=== PATIENT | male | born 1960 | race Caucasian/White ===

== ENCOUNTER → 2017-08-12 | Outpatient (CLI) | payer BC ==
[2017-08-12 12:10] LABS: HCT 44.7 % (39.0-53.0); HGB 14.7 gm/dL (13.0-17.5); MCH 30.4 pg (25.0-35.0); MCHC 32.9 g/dL (31.0-37.0); MCV 92.6 fL (80.0-100.0); Mean Platelet Volume 7.2; Platelet Count 240 k/uL (150-450); RBC 4.83 m/uL (4.30-5.90); RDW 12.1 % (11.5-15.5); WBC 6.9 k/uL (3.8-10.6)
--- NOTE | 2017-08-12 12:12 | XR ---
EXAMINATION TYPE: XR chest 2V DATE OF EXAM: 08/12/2017 COMPARISON: NONE HISTORY: Presurgical study. TECHNIQUE: Frontal and lateral views of the chest are obtained. FINDINGS: There is no focal air space opacity, pleural effusion, or pneumothorax seen. The cardiac silhouette size is within normal limits. The osseous structures are intact. IMPRESSION: No acute cardiopulmonary process.
[2017-08-12 12:23] LABS: ALT 29 U/L (21-72); AST 25 U/L (17-59); Albumin 4.4 g/dL (3.5-5.0); Alkaline Phosphatase 57 U/L (38-126); Anion Gap 9 mmol/L; Blood Urea Nitrogen 15 mg/dL (9-20); Calcium 10.1 mg/dL (8.4-10.2); Carbon Dioxide 30 mmol/L (22-30); Chloride 103 mmol/L (98-107); Glucose 106 mg/dL (74-99); Potassium 5.4 mmol/L (3.5-5.1); Sodium 142 mmol/L (137-145); Total Bilirubin 1.4 mg/dL (0.2-1.3); Total Protein 7.1 g/dL (6.3-8.2)
[2017-08-12 12:26] LABS: INR 1.1 (<1.2); Partial Thromboplastin Time 22.6 sec (22.0-30.0); Prothrombin Time 10.4 sec (9.0-12.0)
[2017-08-12 14:48] LABS: Appearance,Urine Clear (Clear); Bilirubin,Urine Negative (Negative); Blood,Urine Negative (Negative); Color,Urine Colorless; Glucose,Urine (UA) Negative (Negative); Ketones,Urine Negative (Negative); Leukocyte Esterase,Urine Negative (Negative); Nitrite,Urine Negative (Negative); Protein,Urine Negative (Negative); Specific Gravity,Urine 1.002 (1.001-1.035); Urobilinogen,Urine <2.0 mg/dL (<2.0)
== END | disposition home or self-care (01) ==
LOC: LABWHC1 11:00
PROVIDERS: ATTEND Orthopaedic Surgery Orthopaedic Surgery of the Spine
DX: Z01.818 Encounter for other preprocedural examination (principal); M51.27 Other intervertebral disc displacement, lumbosacral region
CPT/HCPCS: 36415; 71046; 80053; 81003; 85027; 85610; 85730; 93005

== ENCOUNTER 2018-03-04 18:00 | Inpatient (IN) | payer BC ==
[2018-03-04] MEDS ORDERED: SODIUM CHLORIDE 0.9% 500 ML IV STA (19:28)
[2018-03-04] MEDS ORDERED: MORPHINE SULFATE 2 MG/ML SYRINGE IVP STA (19:28)
--- NOTE | 2018-03-04 19:33 | ED ---
General Adult HPI - General Chief complaint: Abdominal Pain Stated complaint: abdominal pain Time Seen by Provider: 03/04/18 19:14 Source: patient, RN notes reviewed, old records reviewed Mode of arrival: ambulatory Limitations: no limitations - History of Present Illness Initial comments: 57-year-old male presenting for evaluation of abdominal pain. Pain has been present for the past 48 hours. Initially began as periumbilical, is traveled to the right lower quadrant. Pain is dull and achy in nature. Patient does report some diarrhea which occurred approximately 24 hours ago. No nausea vomiting. He had a temperature of 101 at home. Patient has no significant medical history. - Related Data Home Medications Medication Instructions Recorded Confirmed Pantoprazole [Protonix] 40 mg PO DAILY 03/04/18 03/04/18 Allergies Allergy/AdvReac Type Severity Reaction Status Date / Time No Known Allergies Allergy Verified 03/04/18 19:23 Review of Systems ROS Statement: Those systems with pertinent positive or pertinent negative responses have been documented in the HPI. ROS Other: All systems not noted in ROS Statement are negative. Past Medical History Past Medical History: GERD/Reflux History of Any Multi-Drug Resistant Organisms: None Reported Past Surgical History: Orthopedic Surgery Past Psychological History: No Psychological Hx Reported Smoking Status: Never smoker Past Alcohol Use History: Occasional Past Drug Use History: None Reported General Exam Limitations: no limitations General appearance: alert, in no apparent distress Head exam: Present: atraumatic, normocephalic Eye exam: Present: normal appearance, PERRL ENT exam: Present: normal exam Neck exam: Present: normal inspection. Absent: tenderness, meningismus Respiratory exam: Present: normal lung sounds bilaterally. Absent: respiratory distress, wheezes, rales Cardiovascular Exam: Present: regular rate, normal rhythm GI/Abdominal exam: Present: soft, tenderness (Right lower quadrant tenderness to palpation), hypoactive bowel sounds. Absent: distended, guarding, rebound Extremities exam: Present: normal inspection, normal capillary refill. Absent: pedal edema Neurological exam: Present: alert, oriented X3, CN II-XII intact. Absent: motor sensory deficit Psychiatric exam: Present: normal affect, normal mood Skin exam: Present: warm, dry, intact. Absent: cyanosis, diaphoretic Course Vital Signs 03/04/18 03/04/18 18:07 20:28 Temperature 99.6 F Pulse Rate 100 82 Respiratory 18 18 Rate Blood Pressure 131/84 125/73 O2 Sat by Pulse 98 97 Oximetry Medical Decision Making - Medical Decision Making 57-year-old male with no chronic medical problems presenting with 2 days of abdominal pain progressing to right lower quadrant pain. Patient did have reported history of fever. He is tender in the right lower quadrant. Laboratory studies and CT obtained. Patient is elevated white blood cell count at 17.9. CT confirms acute appendicitis with distended appendix at 2 cm. Case is discussed with Dr. Julien, recommends IV antibiotics, nothing by mouth, will see the patient in the morning. - Lab Data Result diagrams: 03/04/18 19:50 03/04/18 19:50 Lab Results 03/04/18 03/04/18 03/04/18 Range/Units 19:50 19:50 19:50 WBC 17.9 H (3.8-10.6) k/uL RBC 5.19 (4.30-5.90) m/uL Hgb 15.7 (13.0-17.5) gm/dL Hct 46.7 (39.0-53.0) % MCV 90.0 (80.0-100.0) fL MCH 30.1 (25.0-35.0) pg MCHC 33.5 (31.0-37.0) g/dL RDW 12.3 (11.5-15.5) % Plt Count 205 (150-450) k/uL Neutrophils % 91 % Lymphocytes % 3 % Monocytes % 4 % Eosinophils % 1 % Basophils % 0 % Neutrophils # 16.3 H (1.3-7.7) k/uL Lymphocytes # 0.5 L (1.0-4.8) k/uL Monocytes # 0.7 (0-1.0) k/uL Eosinophils # 0.2 (0-0.7) k/uL Basophils # 0.0 (0-0.2) k/uL APTT (22.0-30.0) sec Sodium 136 L (137-145) mmol/L Potassium 4.4 (3.5-5.1) mmol/L Chloride 102 (98-107) mmol/L Carbon Dioxide 24 (22-30) mmol/L Anion Gap 10 mmol/L BUN 11 (9-20) mg/dL Creatinine 0.78 (0.66-1.25) mg/dL Est GFR (CKD-EPI)AfAm >90 (>60 ml/min/1.73 sqM) Est GFR (CKD-EPI)NonAf >90 (>60 ml/min/1.73 sqM) Glucose 124 H (74-99) mg/dL Plasma Lactic Acid Kobe 1.3 (0.7-2.0) mmol/L Calcium 9.5 (8.4-10.2) mg/dL Total Bilirubin 3.4 H (0.2-1.3) mg/dL AST 27 (17-59) U/L ALT 29 (21-72) U/L Alkaline Phosphatase 67 (38-126) U/L Total Protein 7.3 (6.3-8.2) g/dL Albumin 4.3 (3.5-5.0) g/dL Lipase 90 (23-300) U/L Urine Color Urine Appearance (Clear) Urine pH (5.0-8.0) Ur Specific [place] (1.001-1.035) Urine Protein (Negative) Urine Glucose (UA) (Negative) Urine Ketones (Negative) Urine Blood (Negative) Urine Nitrite (Negative) Urine Bilirubin (Negative) Urine Urobilinogen (<2.0) mg/dL Ur Leukocyte Esterase (Negative) 03/04/18 03/04/18 Range/Units 19:50 19:59 WBC (3.8-10.6) k/uL RBC (4.30-5.90) m/uL Hgb (13.0-17.5) gm/dL Hct (39.0-53.0) % MCV (80.0-100.0) fL MCH (25.0-35.0) pg MCHC (31.0-37.0) g/dL RDW (11.5-15.5) % Plt Count (150-450) k/uL Neutrophils % % Lymphocytes % % Monocytes % % Eosinophils % % Basophils % % Neutrophils # (1.3-7.7) k/uL Lymphocytes # (1.0-4.8) k/uL Monocytes # (0-1.0) k/uL Eosinophils # (0-0.7) k/uL Basophils # (0-0.2) k/uL APTT 25.6 (22.0-30.0) sec Sodium (137-145) mmol/L Potassium (3.5-5.1) mmol/L Chloride (98-107) mmol/L Carbon Dioxide (22-30) mmol/L Anion Gap mmol/L BUN (9-20) mg/dL Creatinine (0.66-1.25) mg/dL Est GFR (CKD-EPI)AfAm (>60 ml/min/1.73 sqM) Est GFR (CKD-EPI)NonAf (>60 ml/min/1.73 sqM) Glucose (74-99) mg/dL Plasma Lactic Acid [place] (0.7-2.0) mmol/L Calcium (8.4-10.2) mg/dL Total Bilirubin (0.2-1.3) mg/dL AST (17-59) U/L ALT (21-72) U/L Alkaline Phosphatase (38-126) U/L Total Protein (6.3-8.2) g/dL Albumin (3.5-5.0) g/dL Lipase (23-300) U/L Urine Color Light Yellow Urine Appearance Clear (Clear) Urine pH 6.0 (5.0-8.0) Ur Specific [place] 1.004 (1.001-1.035) Urine Protein Negative (Negative) Urine Glucose (UA) Negative (Negative) Urine Ketones Negative (Negative) Urine Blood Negative (Negative) Urine Nitrite Negative (Negative) Urine Bilirubin Negative (Negative) Urine Urobilinogen <2.0 (<2.0) mg/dL Ur Leukocyte Esterase Negative (Negative) Disposition Clinical Impression: Acute appendicitis Disposition: ADMITTED IP TO THIS [facility] Condition: Stable Is patient prescribed a controlled substance at d/c from ED?: No Referrals: Georgette Salguero III, MD [Primary Care Provider] - 1-2 days Decision to Admit Reason: Admit from EC Decision Date: 03/04/18 Decision Time: 20:51
[2018-03-04 20:20] LABS: Basophils % (A) 0 %; Eosinophils # (A) 0.2 k/uL (0-0.7); Eosinophils % (A) 1 %; HCT 46.7 % (39.0-53.0); HGB 15.7 gm/dL (13.0-17.5); Lymphocytes # (A) 0.5 k/uL (1.0-4.8); Lymphocytes % (A) 3 %; MCH 30.1 pg (25.0-35.0); MCHC 33.5 g/dL (31.0-37.0); Mean Platelet Volume 7.1; Monocytes # (A) 0.7 k/uL (0-1.0); Monocytes % (A) 4 %; Neutrophils # (A) 16.3 k/uL (1.3-7.7); Neutrophils % (A) 91 %; Platelet Count 205 k/uL (150-450); RBC 5.19 m/uL (4.30-5.90); RDW 12.3 % (11.5-15.5); WBC 17.9 k/uL (3.8-10.6)
[2018-03-04 20:27] LABS: Appearance,Urine Clear (Clear); Bilirubin,Urine Negative (Negative); Blood,Urine Negative (Negative); Color,Urine Light Yellow; Glucose,Urine (UA) Negative (Negative); Ketones,Urine Negative (Negative); Leukocyte Esterase,Urine Negative (Negative); Nitrite,Urine Negative (Negative); Protein,Urine Negative (Negative); Specific Gravity,Urine 1.004 (1.001-1.035); Urobilinogen,Urine <2.0 mg/dL (<2.0)
--- NOTE | 2018-03-04 20:41 | CT ---
EXAMINATION TYPE: CT abdomen pelvis w con DATE OF EXAM: 03/04/2018 COMPARISON: HISTORY: RLQ pain CT DLP: 901.1 mGycm Automated exposure control for dose reduction was used. TECHNIQUE: Helical acquisition of images was performed from the lung bases through the pelvis. CONTRAST: Performed without Oral Contrast and with IV Contrast, patient injected with 100 mL of Isovue 300. FINDINGS: LUNG BASES: No significant abnormality is appreciated. LIVER/GB: No significant abnormality is appreciated. PANCREAS: No significant abnormality is seen. SPLEEN: No significant abnormality is seen. ADRENALS: No significant abnormality is seen. KIDNEYS: No significant abnormality is seen. PERITONEAL CAVITY: No free air is visualized. No peritoneal fluid. ABDOMINAL ADENOPATHY: None visualized REPRODUCTIVE ORGANS: No significant abnormality is seen URINARY BLADDER: No significant abnormality is seen. PELVIC ADENOPATHY: None visualized. OSSEOUS STRUCTURES: No significant abnormality is seen. BOWEL: The appendix is markedly distended and dilated, reaching caliber of 2 cm. The appendix course s from the cecum posteromedially to have its tip just anterior to the sacral promontory. Surrounding the appendix is a broad band of circumferential edematous reticulation with indistinct fascial thicke doe and with reactive mild right ureterectasis. The right ureter is immediately posterior to the mid appendix. There are no abnormal fluid or gas collections. No bowel obstruction. OTHER: The vasculature is unremarkable. IMPRESSION: ACUTE APPENDICITIS, WITH MARKED DISTENTION OF THE APPENDIX.
[2018-03-04 20:43] LABS: ALT 29 U/L (21-72); AST 27 U/L (17-59); Albumin 4.3 g/dL (3.5-5.0); Alkaline Phosphatase 67 U/L (38-126); Anion Gap 10 mmol/L; Blood Urea Nitrogen 11 mg/dL (9-20); Calcium 9.5 mg/dL (8.4-10.2); Carbon Dioxide 24 mmol/L (22-30); Chloride 102 mmol/L (98-107); Glucose 124 mg/dL (74-99); Lipase 90 U/L (23-300); Sodium 136 mmol/L (137-145); Total Bilirubin 3.4 mg/dL (0.2-1.3); Total Protein 7.3 g/dL (6.3-8.2)
[2018-03-04] MEDS ORDERED: KETOROLAC 30 MG/ML 1 ML VIAL IVP STA (20:46)
[2018-03-04] MEDS ORDERED: KETOROLAC 30 MG/ML 1 ML VIAL IVP PRN (20:47)
[2018-03-04] MEDS ORDERED: PIPERACILLIN-TAZOBACTAM 3.375 GM in DEXTROSE/WATER 1 50ML.BAG IVPB STA (20:47)
[2018-03-04] MEDS ORDERED: NALOXONE 0.4 MG/ML 1 ML VIAL IV PRN (20:47)
[2018-03-04 20:48] LABS: Potassium 4.4 mmol/L (3.5-5.1)
[2018-03-04] MEDS: SODIUM CHLORIDE 0.9% 1,000 ML IV SCH (20:57)
[2018-03-04 21:50] VITALS: BMI 28.5
[2018-03-04] MEDS: ACETAMINOPHEN TAB 325 MG TAB PO PRN (21:54)
[2018-03-04] MEDS: MORPHINE SULFATE 4 MG/ML SYRINGE IV PRN (21:55)
[2018-03-05] MEDS: MORPHINE SULFATE 4 MG/ML SYRINGE IV PRN ×2 (02:19→08:08)
[2018-03-05] MEDS: PIPERACILLIN-TAZOBACTAM 3.375 GM in DEXTROSE/WATER 1 50ML.BAG IVPB SCH ×3 (05:07→20:15)
--- NOTE | 2018-03-05 09:22 | P.GSHP ---
<Glenny Squires - Last Filed: 03/05/18 09:07> History of Present Illness H&P Date: 03/05/18 57-year-old male presented to the emergency room on the day of admission with a chief complaint of developing periumbilical pain radiating to the right lower quadrant started 48 hours prior became more symptomatic patient stated that he developed fever chills with a nausea sensation at home. states he had some loose stools with the episode. He described the pain as a dull and achy in nature in the right upper quadrant tender to the touch. No prior episodes. No significant past medical history except hiatal hernia. CAT scan of the abdomen and pelvis with contrast reviewing the report indicates acute appendicitis with marked distention of the appendix. No bowel obstruction. In the emergency room the temp was 101 white count 17 total bili 3.4. Past surgical history orthopedic surgery July 2017 back surgery, knee surgery greater than 10 years Currently continues to report having right upper quadrant tenderness with a nausea sensation. - Review of Systems Comment: Essentially unremarkable except as mentioned in the present illness Past Medical History Past Medical History: GERD/Reflux History of Any Multi-Drug Resistant Organisms: None Reported Past Surgical History: Orthopedic Surgery Past Anesthesia/Blood Transfusion Reactions: No Reported Reaction Past Psychological History: No Psychological Hx Reported Smoking Status: Never smoker Past Alcohol Use History: Occasional Past Drug Use History: None Reported - Past Family History Mother History Unknown: Yes Family Medical History: Coronary Artery Disease (CAD) Father Family Medical History: Coronary Artery Disease (CAD), Diabetes Mellitus Medications and Allergies Home Medications Medication Instructions Recorded Confirmed Type Pantoprazole [Protonix] 40 mg PO DAILY 03/04/18 03/04/18 History Allergies Allergy/AdvReac Type Severity Reaction Status Date / Time No Known Allergies Allergy Verified 03/04/18 19:23 Surgical - Exam Vital Signs Temp Pulse Resp BP Pulse Ox 99.6 F 100 18 131/84 98 03/04/18 18:07 03/04/18 18:07 03/04/18 18:07 03/04/18 18:07 03/04/18 18:07 GENERAL APPEARANCE: 57-year-old male resting in bed awake alert oriented 3 reports having right upper quadrant abdominal discomfort with a nausea sensation VITAL SIGNS: Reviewed HEENT: Head is normocephalic and atraumatic. Pupils are equal and reactive. The nares are patent. Oropharynx is clear without lesions. NECK: Supple without lymphadenopathy. Traches midline. HEART: S1, S2. Regular rate and rhythm. No murmur denying chest pain LUNGS: No crackles or wheezes are heard. Adequate air movement bilaterally on room air sats 95% ABDOMEN: Soft, positive tenderness right upper quadrant nondistended with good bowel sounds. No peritoneal signs. No palpable organomegaly or masses. EXTREMITIES: Normal skin color and turgor. No cyanosis, rash, ulceration, clubbing or edema. Radial pedal pulses are 2/4 bilaterally. NEUROLOGICAL: No focal deficits. Strength and sensation are grossly intact. Results - Labs 03/04/18 19:50 03/04/18 19:50 Abnormal Lab Results - Last 24 Hours (Table) 03/04/18 03/04/18 Range/Units 19:50 19:50 WBC 17.9 H (3.8-10.6) k/uL Neutrophils # 16.3 H (1.3-7.7) k/uL Lymphocytes # 0.5 L (1.0-4.8) k/uL Sodium 136 L (137-145) mmol/L Glucose 124 H (74-99) mg/dL Total Bilirubin 3.4 H (0.2-1.3) mg/dL Diabetes panel 03/04/18 Range/Units 19:50 Sodium 136 L (137-145) mmol/L Potassium 4.4 (3.5-5.1) mmol/L Chloride 102 (98-107) mmol/L Carbon Dioxide 24 (22-30) mmol/L BUN 11 (9-20) mg/dL Creatinine 0.78 (0.66-1.25) mg/dL Glucose 124 H (74-99) mg/dL Calcium 9.5 (8.4-10.2) mg/dL AST 27 (17-59) U/L ALT 29 (21-72) U/L Alkaline Phosphatase 67 (38-126) U/L Total Protein 7.3 (6.3-8.2) g/dL Albumin 4.3 (3.5-5.0) g/dL Calcium panel 03/04/18 Range/Units 19:50 Calcium 9.5 (8.4-10.2) mg/dL Albumin 4.3 (3.5-5.0) g/dL Pituitary panel 03/04/18 Range/Units 19:50 Sodium 136 L (137-145) mmol/L Potassium 4.4 (3.5-5.1) mmol/L Chloride 102 (98-107) mmol/L Carbon Dioxide 24 (22-30) mmol/L BUN 11 (9-20) mg/dL Creatinine 0.78 (0.66-1.25) mg/dL Glucose 124 H (74-99) mg/dL Calcium 9.5 (8.4-10.2) mg/dL Adrenal panel 03/04/18 Range/Units 19:50 Sodium 136 L (137-145) mmol/L Potassium 4.4 (3.5-5.1) mmol/L Chloride 102 (98-107) mmol/L Carbon Dioxide 24 (22-30) mmol/L BUN 11 (9-20) mg/dL Creatinine 0.78 (0.66-1.25) mg/dL Glucose 124 H (74-99) mg/dL Calcium 9.5 (8.4-10.2) mg/dL Total Bilirubin 3.4 H (0.2-1.3) mg/dL AST 27 (17-59) U/L ALT 29 (21-72) U/L Alkaline Phosphatase 67 (38-126) U/L Total Protein 7.3 (6.3-8.2) g/dL Albumin 4.3 (3.5-5.0) g/dL Assessment and Plan Assessment: Impression Present on admission right upper quadrant abdominal pain with nausea vomiting suspect due to acute appendicitis Computed tomography scan abdomen and pelvis with contrast report indicate acute appendicitis with marked distention of the appendix no bowel obstruction History of a hiatal hernia History of esophageal reflux Present on admission febrile leukocytosis suspect due to acute appendicitis Plan Keep nothing by mouth Scheduled today for a lap appendectomy IV fluid as ordered IV Zosyn as ordered DVT and GI prophylaxis pain control The above impression and plan of care have been discussed and directed by signing physician. Glenny Squires nurse practitioner acting as scribe for signing physician. <Zak Julien - Last Filed: 03/05/18 10:08> Surgical - Exam Vital Signs Temp Pulse Resp BP Pulse Ox 99.6 F 100 18 131/84 98 03/04/18 18:07 03/04/18 18:07 03/04/18 18:07 03/04/18 18:07 03/04/18 18:07 Results - Labs 03/04/18 19:50 03/04/18 19:50 Abnormal Lab Results - Last 24 Hours (Table) 03/04/18 03/04/18 Range/Units 19:50 19:50 WBC 17.9 H (3.8-10.6) k/uL Neutrophils # 16.3 H (1.3-7.7) k/uL Lymphocytes # 0.5 L (1.0-4.8) k/uL Sodium 136 L (137-145) mmol/L Glucose 124 H (74-99) mg/dL Total Bilirubin 3.4 H (0.2-1.3) mg/dL Diabetes panel 03/04/18 Range/Units 19:50 Sodium 136 L (137-145) mmol/L Potassium 4.4 (3.5-5.1) mmol/L Chloride 102 (98-107) mmol/L Carbon Dioxide 24 (22-30) mmol/L BUN 11 (9-20) mg/dL Creatinine 0.78 (0.66-1.25) mg/dL Glucose 124 H (74-99) mg/dL Calcium 9.5 (8.4-10.2) mg/dL AST 27 (17-59) U/L ALT 29 (21-72) U/L Alkaline Phosphatase 67 (38-126) U/L Total Protein 7.3 (6.3-8.2) g/dL Albumin 4.3 (3.5-5.0) g/dL Calcium panel 03/04/18 Range/Units 19:50 Calcium 9.5 (8.4-10.2) mg/dL Albumin 4.3 (3.5-5.0) g/dL Pituitary panel 03/04/18 Range/Units 19:50 Sodium 136 L (137-145) mmol/L Potassium 4.4 (3.5-5.1) mmol/L Chloride 102 (98-107) mmol/L Carbon Dioxide 24 (22-30) mmol/L BUN 11 (9-20) mg/dL Creatinine 0.78 (0.66-1.25) mg/dL Glucose 124 H (74-99) mg/dL Calcium 9.5 (8.4-10.2) mg/dL Adrenal panel 03/04/18 Range/Units 19:50 Sodium 136 L (137-145) mmol/L Potassium 4.4 (3.5-5.1) mmol/L Chloride 102 (98-107) mmol/L Carbon Dioxide 24 (22-30) mmol/L BUN 11 (9-20) mg/dL Creatinine 0.78 (0.66-1.25) mg/dL Glucose 124 H (74-99) mg/dL Calcium 9.5 (8.4-10.2) mg/dL Total Bilirubin 3.4 H (0.2-1.3) mg/dL AST 27 (17-59) U/L ALT 29 (21-72) U/L Alkaline Phosphatase 67 (38-126) U/L Total Protein 7.3 (6.3-8.2) g/dL Albumin 4.3 (3.5-5.0) g/dL Assessment and Plan Plan: Acute appendicitis. Patient will undergo laparoscopic appendectomy today.
[2018-03-05] MEDS ORDERED: HEPARIN SODIUM,PORCINE 5,000 UNIT/ML 1 ML VIAL SQ ONE (10:07)
[2018-03-05] MEDS ORDERED: IV FLUID CONTINUATION 1,000 ML IV ONE (10:07)
[2018-03-05] MEDS: LACTATED RINGERS 1,000 ML IV ONE ×2 (10:10→15:08)
--- NOTE | 2018-03-05 10:11 | P.PN ---
Progress Note - Text Progress Note Date: 03/05/18 Patient's complaints of pain in the right lower quadrant. He rates his pain a 5 out of 10. On exam is lesser stable. His abdomen soft there is marked tenderness in the right lower quadrant. Acute appendicitis. Patient will undergo laparoscopic appendectomy. I discussed patient risks of possible open appendectomy.
[2018-03-05] MEDS ORDERED: BUPIVACAIN-EPI 0.25%-1:200,000 30 ML VIAL SQ ONE ×2 (10:37→11:03)
[2018-03-05] MEDS ORDERED: PROPOFOL 10 MG/ML 20 ML VIAL IV ONE (10:41)
[2018-03-05] MEDS ORDERED: MIDAZOLAM 2 MG/2 ML VIAL ONE (10:41)
[2018-03-05] MEDS ORDERED: NEOSTIGMINE 1 MG/ML 10 ML VIAL ONE (10:41)
[2018-03-05] MEDS ORDERED: LACTATED RINGERS 1,000 ML IV ONE ×2 (10:41→11:36)
[2018-03-05] MEDS ORDERED: ONDANSETRON 4 MG/2 ML VIAL ONE (10:41)
[2018-03-05] MEDS ORDERED: MAGNESIUM SULFATE 4 MEQ/ML 2 ML VIAL ONE (10:41)
[2018-03-05] MEDS ORDERED: PHENYLEPHRINE-0.9% NACL SYG 1 MG/10 ML SYRINGE ONE (10:41)
[2018-03-05] MEDS ORDERED: fentaNYL (PF) 50 MCG/ML 2 ML AMP ONE (10:41)
[2018-03-05] MEDS ORDERED: LIDOCAINE 1% INJ 10MG/ML (20 ML MDV) ONE (10:41)
[2018-03-05] MEDS ORDERED: ROCURONIUM BROMIDE 10 MG/ML 10 ML VIAL IV ONE (10:41)
[2018-03-05] MEDS ORDERED: KETOROLAC 30 MG/ML 1 ML VIAL ONE (10:41)
[2018-03-05] MEDS ORDERED: GLYCOPYRROLATE 0.2 MG/ML 2 ML VIAL ONE (10:41)
[2018-03-05] MEDS ORDERED: NALOXONE 0.4 MG/ML 1 ML VIAL IV PRN (11:36)
[2018-03-05] MEDS ORDERED: HYDROmorphone 1 MG/ML 1 ML SYRINGE IVP PRN (11:36)
[2018-03-05] MEDS ORDERED: METOCLOPRAMIDE 5 MG/ML 2 ML VIAL IVP PRN (11:36)
[2018-03-05] MEDS: HYDROmorphone 1 MG/ML 1 ML SYRINGE IVP ONE ×2 (12:09→12:30)
[2018-03-05] MEDS: HYDROcodone/APAP 5-325MG 1 EACH TAB PO PRN ×2 (13:52→20:14)
--- NOTE | 2018-03-05 14:21 | P.OP ---
Date of Procedure: 03/05/18 Preoperative Diagnosis: Acute appendicitis Postoperative Diagnosis: Acute appendicitis with appendiceal perforation and peritonitis Procedure(s) Performed: Laparoscopic appendectomy Anesthesia: REMIGIO Surgeon: Zak Julien Pathology: other (Appendix) Condition: stable (Stable) Description of Procedure: The patient's placed on the operating table in the supine position. The patient received general anesthesia. The abdomen was prepped and draped in the usual sterile fashion. The skin was anesthetized 1% local Xylocaine at the trocar sites. Using an 11 blade the skin was incised at the umbilicus. The umbilicus was grasped with a Verplanck clamp and then a Veress needle was placed into the peritoneal cavity. Position of the Veress needle was confirmed with positive drop test. After adequate insufflation a 5 mm trocar was placed into the peritoneal cavity. The abdomen was further insufflated. And then the laparoscope was placed in the peritoneal cavity. Next a 5 mm trocar was placed in the midline suprapubic position. And then a 10 mm trocar was placed in the midline epigastric position. The patient was rotated with the right side up and in Trendelenburg. The appendix was visualized. The appendix was grossly inflamed. The appendix was then bluntly dissected off of the omentum. There appeared to be a area of necrosis in the midportion the appendix. There was a fecalith seen. The appendix was grasped and then using the Harmonic scissors the mesoappendix was divided. A PDS Endoloop was then placed around the base of the appendix. And then the appendix was divided using Harmonic scissors. The appendix was placed into an Endo Catch and brought out through the 10 mm trocar site. The abdomen was irrigated. With 2 L of saline. A MAGDIEL drain is placed along the cecal base and brought out through the lower 5 mm trocar site. There is no bleeding seen. The trochars withdrawn. The skin was closed interrupted 3-0 Monocryl suture. Dermabond dressing was applied. Patient was sent to recovery room in stable condition.
[2018-03-05] MEDS: HEPARIN SODIUM,PORCINE 5,000 UNIT/ML 1 ML VIAL SQ SCH (16:40)
[2018-03-05] MEDS: SODIUM CHLORIDE 0.9% 1,000 ML IV SCH (19:30)
--- NOTE | 2018-03-05 19:58 | CONS ---
CONSULTATION REASON FOR CONSULTATION: Advice regarding GERD and other medical issues, requested by Dr. Julien. HISTORY OF PRESENT ILLNESS: This 57-year-old gentleman with a past medical history of GERD, being followed by Dr. Salguero in the outpatient setting, was admitted with abdominal pain. The patient underwent laparoscopic appendectomy by Dr. Julien. The patient is being closely monitored at this time. The abdomen and pelvis CT scan showed acute appendicitis with marked distention of the appendix. There is no history of any fever, rigors, chills. No history of headache, loss consciousness, seizures at this time. No chest pain, palpitation. PAST MEDICAL HISTORY: History of GERD. MEDICATIONS: Protonix 40 mg daily. ALLERGIES: NONE. FAMILY HISTORY: History of coronary artery disease in the family. SOCIAL HISTORY: No history of smoking. No history of alcohol intake. REVIEW OF SYSTEMS: ENT: No diminished hearing. No diminished vision. CARDIOVASCULAR SYSTEM: No angina, palpitations. RESPIRATORY SYSTEM: No cough, hemoptysis. GI: As mentioned earlier. : No dysuria or retention. NERVOUS SYSTEM: No numbness, weakness. ALLERGY/IMMUNOLOGY: No asthma, hayfever. MUSCULOSKELETAL: As mentioned earlier. HEMATOLOGY/ONCOLOGY: No history of anemia. ENDOCRINE: No history of diabetes, hypothyroidism. CONSTITUTIONAL: As mentioned earlier. DERMATOLOGY: Negative. RHEUMATOLOGY: Negative. PSYCHIATRY: As mentioned earlier. PHYSICAL EXAMINATION: Patient is alert and oriented x3. Pulse 66, blood pressure 97/50, respiration 16, temperature 97 degrees, pulse ox 97% on 3 L. HEENT: Conjunctivae normal. Oral mucosa moist. NECK: No jugular venous distention. No carotid bruit. No lymph node enlargement. CARDIOVASCULAR SYSTEM: S1, S2 muffled. RESPIRATORY SYSTEM: Breath sounds diminished at the bases. A few scattered rhonchi. ABDOMEN: Soft, status post surgery. LEGS: No edema. No swelling. NERVOUS SYSTEM: No focal deficit. LABS: WBC 17.9, sodium 136. ASSESSMENT: 1. Acute appendicitis, status post laparoscopic appendectomy. 2. Increased white count. 3. Increased random blood sugar. 4. Hyponatremia, mild. 5. History of gastroesophageal reflux disease. 6. Increased bilirubin. RECOMMENDATIONS AND DISCUSSION: In this 57-year-old gentleman who presented with multiple medical problems, I would recommend to continue the current medications, continue symptomatic treatment, continue with the broad-spectrum IV antibiotics. Follow closely with Surgery. Repeat labs in the morning. Otherwise, monitor blood sugars closely. The patient also has increased bilirubin. Will repeat the bilirubin and continue to monitor. We will fractionate the bilirubin as well. Further recommendations to follow. Thank you, Dr. Julien, for letting us participate in the care of this patient. MMODL / IJN: [id number] /
[2018-03-05] MEDS: FAMOTIDINE 20 MG TAB PO SCH (20:14)
--- NOTE | 2018-03-05 22:25 | CONS ---
CONSULTATION DATE OF SERVICE: 03/05/2018. REASON FOR CONSULTATION: Secondary peritonitis from perforated appendicitis. HISTORY OF PRESENT ILLNESS: The patient is a 57-year-old male with no significant past medical history, presented to the ER last evening with chief complaints of abdominal pain. The patient's pain has been going on for about 2 days before he presented to the hospital. The patient stated it started around the umbilical area, subsequently shifted to the right lower quadrant area. Pain described to be dull, aching in nature, intensity about 6/10-7/10 and no radiation. The patient has felt nauseated, but no vomiting. He did have some diarrhea, though, and did have a fever of 101 degrees Fahrenheit with these symptoms, the patient did present to the [facility] ER, where the patient has been evaluated by the ER physician. On arrival to the ER, the patient did have a low-grade fever of 99.6, subsequently did spike a fever of 100.9. The patient did have elevated white count of 17.9. UA was negative. A CT of abdomen-pelvis was completed which was suggestive of acute appendicitis. The patient has been taken to the OR and is noticed to have ruptured appendicitis with secondary peritonitis. The patient is status post laparoscopic appendectomy. Infectious Disease was consulted for further recommendation regarding antibiotic therapy. REVIEW OF SYSTEMS: CONSTITUTIONAL: Positive for weakness along with the fever. EYES: No complaint. ENT: No complaint. RESPIRATORY: No complaint. CARDIOVASCULAR: No complaint. GENITOURINARY: No complaint. GASTROINTESTINAL: As per HPI. MUSCULOSKELETAL: No complaint. INTEGUMENTARY: No complaint. PSYCHOLOGICAL: No complaint. ENDOCRINE: No complaint. NEUROLOGICAL: No complaint. PAST MEDICAL HISTORY: Gastroesophageal reflux disease. PAST SURGICAL HISTORY: No major surgeries. SOCIAL HISTORY: Denies smoking. Patient drinks. No drug use. FAMILY HISTORY: No pertinent findings noticed. ALLERGIES: No known drug allergies. MEDICATION: Currently, the patient is on: 1. Tylenol. 2. [place]. 3. Lovenox. 4. Pepcid. 5. Heparin. 6. Dilaudid. 7. Toradol. 8. Reglan. 9. Narcan. 10.Zofran. 11.Zosyn 3.375 g q.8 hours and. 12.IV fluid. EXAMINATION: Blood pressure is 91/60 with a pulse of 69, temperature of 98, T-max is 100.9. He is 95% on room air. General description is a middle-aged male lying in bed in no distress. No tachypnea or accessory muscle of respiration use. HEENT shows no pallor or scleral icterus. Oral mucous membranes moist. No pharyngeal erythema or thrush. NECK: Trachea is central. No thyromegaly. LUNGS: Unlabored breathing. Clear to auscultation anteriorly. No wheeze or crackle. HEART: S1, S2. Regular rate and rhythm. No added sounds. ABDOMEN: Soft, mildly tender in lower quadrant area. No guarding. rigidity or organomegaly. EXTREMITIES: No edema of feet. SKIN: No rash or mass palpable. Neurologically, patient is awake, alert, oriented x3. Mood and affect normal. LABS: Hemoglobin is 15.7, white count of 17.9. BUN of 11, creatinine 0.7. Electrolytes have been normal. Liver enzymes are normal. UA has been negative. CT abdomen-pelvis report as mentioned above. DIAGNOSTIC IMPRESSION AND PLAN: Patient admitted to hospital with sepsis and patient did have fever of 100.9, did have elevated white count of 17,000, tachycardia. The patient admitted to hospital with abdominal pain, source is a acute appendicitis with perforation and secondary peritonitis, the likely organism gram-negative, both aerobes and anaerobes. The patient has not been on antibiotic in the recent past, could be sensitive pathogen such as Escherichia coli. PLAN: 1. We will discontinue the Zosyn. 2. Start the patient on Unasyn 3 g every 6 hours. 3. We are going to monitor his clinical course closely. The patient did show overall clinical improvement on Unasyn. Will be able to finish therapy with oral Augmentin. Thank you for this consultation. Will follow the patient along with you. Family present at bedside. Their questions were answered. MMODL / IJN: [id number] /
[2018-03-06] MEDS: SODIUM CHLORIDE 0.9% 1,000 ML IV SCH ×3 (00:15→23:42)
[2018-03-06] MEDS: AMPICILLIN-SULBACTAM 3 GM in SODIUM CHLORIDE 0.9% 100 ML IVPB SCH ×5 (00:44→23:43)
[2018-03-06] MEDS: HEPARIN SODIUM,PORCINE 5,000 UNIT/ML 1 ML VIAL SQ SCH ×2 (00:44→10:25)
[2018-03-06 07:43] LABS: Basophils % (A) 0 %; Eosinophils # (A) 0.1 k/uL (0-0.7); Eosinophils % (A) 1 %; HCT 36.8 % (39.0-53.0); Lymphocytes # (A) 0.5 k/uL (1.0-4.8); Lymphocytes % (A) 6 %; MCH 29.2 pg (25.0-35.0); MCHC 31.7 g/dL (31.0-37.0); MCV 91.9 fL (80.0-100.0); Mean Platelet Volume 7.3; Monocytes # (A) 0.4 k/uL (0-1.0); Monocytes % (A) 5 %; Neutrophils # (A) 7.9 k/uL (1.3-7.7); Neutrophils % (A) 87 %; Platelet Count 172 k/uL (150-450); RBC 4.01 m/uL (4.30-5.90); RDW 12.4 % (11.5-15.5)
[2018-03-06 07:50] LABS: ALT 26 U/L (21-72); AST 16 U/L (17-59); Albumin 2.6 g/dL (3.5-5.0); Alkaline Phosphatase 57 U/L (38-126); Anion Gap 6 mmol/L; Bilirubin, Delta 0.6 mg/dL (0.0-0.2); Bilirubin,Unconjugated 1.7 mg/dL (0.0-1.1); Blood Urea Nitrogen 16 mg/dL (9-20); Calcium 7.9 mg/dL (8.4-10.2); Carbon Dioxide 26 mmol/L (22-30); Chloride 104 mmol/L (98-107); Glucose 93 mg/dL (74-99); Potassium 3.9 mmol/L (3.5-5.1); Sodium 136 mmol/L (137-145); Total Bilirubin 2.3 mg/dL (0.2-1.3); Total Protein 5.1 g/dL (6.3-8.2)
[2018-03-06 08:08] LABS: HGB 11.7 gm/dL (13.0-17.5)
--- NOTE | 2018-03-06 09:12 | P.PN ---
Subjective Progress Note Date: 03/06/18 57-year-old male seen at the bedside. Currently sitting up taking clear liquid. Reports no nausea vomiting. Reports pain medication effective for pain control. Is not passing gas no stool. Surgical dressing site dry. MAGDIEL drain in place serous drainage. States was up ambulating in the hallway last evening White count down to 9 admitting white count 17.9 afebrile Status post 05 of March laparoscopic appendectomy for acute appendicitis with perforation and peritonitis Objective - Vital Signs Vital signs: Vital Signs Temp 98.4 F 03/06/18 00:53 Pulse 65 03/06/18 03:30 Resp 16 03/06/18 03:30 BP 96/63 03/06/18 00:53 Pulse Ox 92 L 03/06/18 00:53 Intake & Output 03/05/18 03/06/18 03/06/18 18:59 06:59 18:59 Intake Total 1150 825 Output Total 60 50 Balance 1090 775 Weight 95.3 kg Intake: IV 1150 Intake, IV Titration 825 Amount Sodium Chloride 0.9% 1, 825 000 ml @ 75 mls/hr IV . [id number] Rx#:[id number] Output: Drainage 40 50 Abdomen 40 50 Estimated Blood Loss 20 Other: Voiding Method Toilet # Voids 1 2 - Exam Physical exam 57-year-old male sitting up in bed taking a clear liquid diet Lungs adequate air movement bilaterally on room air Heart S1-S2 audible regular Abdomen soft surgical tenderness appropriate few hypoactive bowel tones MAGDIEL drain in place serous drainage surgical dressing site dry nondistended Extremities no edema noted - Labs CBC & Chem 7: 03/06/18 07:03 03/06/18 07:03 Labs: Abnormal Lab Results - Last 24 Hours (Table) 03/06/18 03/06/18 Range/Units 07:03 07:03 RBC 4.01 L (4.30-5.90) m/uL Hgb 11.7 L D (13.0-17.5) gm/dL Hct 36.8 L (39.0-53.0) % Neutrophils # 7.9 H (1.3-7.7) k/uL Lymphocytes # 0.5 L (1.0-4.8) k/uL Sodium 136 L (137-145) mmol/L Calcium 7.9 L (8.4-10.2) mg/dL Total Bilirubin 2.3 H (0.2-1.3) mg/dL Unconjugated Bilirubin 1.7 H (0.0-1.1) mg/dL Delta Bilirubin 0.6 H (0.0-0.2) mg/dL AST 16 L (17-59) U/L Total Protein 5.1 L (6.3-8.2) g/dL Albumin 2.6 L (3.5-5.0) g/dL Assessment and Plan Assessment: Impression Present on admission right upper quadrant abdominal pain with nausea vomiting suspect due to acute appendicitis Computed tomography scan abdomen and pelvis with contrast report indicate acute appendicitis with marked distention of the appendix no bowel obstruction History of a hiatal hernia History of esophageal reflux Present on admission febrile leukocytosis suspect due to acute appendicitis Status post March 05 laparoscopic appendectomy for acute appendicitis with appendiceal perforation and peritonitis Plan Clear liquid diet Continue postop surgical care Pain control Increase activity IV fluid as ordered IV Unasyn as ordered per infectious disease DVT and GI prophylaxis pain control The above impression and plan of care have been discussed and directed by signing physician. Glenny Squires nurse practitioner acting as scribe for signing physician.
[2018-03-06] MEDS: PANTOPRAZOLE 40 MG/10 ML VIAL IVP SCH (09:41)
[2018-03-06] MEDS: ENOXAPARIN 40 MG/0.4 ML SYRINGE SQ SCH (09:42)
[2018-03-06] MEDS: FAMOTIDINE 20 MG TAB PO SCH (10:25)
[2018-03-06] MEDS: HYDROcodone/APAP 5-325MG 1 EACH TAB PO PRN ×3 (11:21→23:57)
--- NOTE | 2018-03-06 15:35 | PN ---
PROGRESS NOTE DATE OF SERVICE: 03/06/2018 This is a 57-year-old gentleman who was admitted with acute appendicitis, had surgery. The patient is being closely monitored. No chest pain. No palpitations. No fever. White count is elevated yesterday, it is much better today. Total bilirubin is 2.3 and is 1.7. Albumin is 2.6. PHYSICAL EXAM: Alert and oriented x3. Pulse is 83, blood pressure is 111/63, respiration is 16 , temperature is 99.2, pulse ox 98% on room air. HEENT: Conjunctivae normal. Oral mucosa moist. Neck is no jugular venous distention. No carotid bruit, no lymph node enlargement. CARDIOVASCULAR SYSTEM: S1, S2, muffled. RESPIRATORY: Breath sounds diminished at the bases, no rhonchi, no crackles. ABDOMEN: Soft, status post surgery. LEGS: No edema, no swelling. NERVOUS SYSTEM: No focal deficits. LABS: WBC is 9, hemoglobin is 11.7, sodium 136 and total bilirubin is 2.3 as mentioned earlier. ASSESSMENT: 1. Acute appendicitis, status post laparoscopic appendectomy. 2. Increased WBC. 3. Increased random blood sugar. 4. Hyponatremia, mild. 5. History of gastroesophageal reflux disease. 6. Increased bilirubin, possibly unconjugated hyperbilirubinemia. RECOMMENDATION: Recommend to continue current management and symptomatic treatment. Continue with the pain management. DVT prophylaxis. Incentive spirometry. Repeat labs. Closely follow with Surgery. Further recommendations to follow. MMODL / IJN: [id number] / MTDD
[2018-03-06] MEDS: ACETAMINOPHEN TAB 325 MG TAB PO PRN (18:39)
--- NOTE | 2018-03-06 23:23 | PN ---
PROGRESS NOTE DATE OF SERVICE: 03/06/2018 REASON FOR FOLLOWUP: Secondary peritonitis from ruptured appendicitis. INTERVAL HISTORY: The patient is afebrile. He is currently breathing comfortably. Abdominal pain has slightly decreased IN intensity. No nausea, no vomiting and has been tolerating his clear liquid diet. EXAMINATION: Blood pressure is 122/73 with a pulse of 71 temperature 98.4. He is 93% on room air. General description is a middle-aged male lying in bed in no distress. RESPIRATORY SYSTEM: Unlabored breathing. Clear to auscultation anteriorly. HEART: S1, S2. Regular rate and rhythm. ABDOMEN: Soft. No tenderness. LABS: Hemoglobin is 11.7, white count 9.0. BUN of 16, creatinine 1.05. DIAGNOSTIC IMPRESSION AND PLAN: Patient with secondary peritonitis from a ruptured appendicitis, status post laparoscopic appendectomy. The patient's white count has normalized. In view of fever this evening, blood culture will be ordered. Keep the patient on Unasyn 3 g every 6 hours and re-evaluate the patient tomorrow. Continue with supportive care. MMODL / IJN: [id number] /
[2018-03-07] MEDS: AMPICILLIN-SULBACTAM 3 GM in SODIUM CHLORIDE 0.9% 100 ML IVPB SCH ×3 (05:33→18:09)
[2018-03-07] MEDS: ACETAMINOPHEN TAB 325 MG TAB PO PRN ×2 (05:34→20:05)
[2018-03-07 06:58] LABS: Basophils % (A) 0 %; Eosinophils # (A) 0.2 k/uL (0-0.7); Eosinophils % (A) 3 %; HCT 36.7 % (39.0-53.0); HGB 11.8 gm/dL (13.0-17.5); Lymphocytes # (A) 0.6 k/uL (1.0-4.8); Lymphocytes % (A) 8 %; MCH 29.6 pg (25.0-35.0); MCHC 32.1 g/dL (31.0-37.0); MCV 92.1 fL (80.0-100.0); Mean Platelet Volume 7.2; Monocytes # (A) 0.5 k/uL (0-1.0); Monocytes % (A) 7 %; Neutrophils % (A) 81 %; Platelet Count 191 k/uL (150-450); RBC 3.99 m/uL (4.30-5.90); RDW 12.3 % (11.5-15.5); WBC 7.4 k/uL (3.8-10.6)
[2018-03-07 07:07] LABS: ALT 40 U/L (21-72); AST 32 U/L (17-59); Albumin 2.8 g/dL (3.5-5.0); Alkaline Phosphatase 86 U/L (38-126); Anion Gap 8 mmol/L; Blood Urea Nitrogen 9 mg/dL (9-20); Carbon Dioxide 23 mmol/L (22-30); Chloride 104 mmol/L (98-107); Glucose 100 mg/dL (74-99); Potassium 3.9 mmol/L (3.5-5.1); Sodium 135 mmol/L (137-145); Total Protein 5.2 g/dL (6.3-8.2)
--- NOTE | 2018-03-07 10:09 | P.PN ---
Subjective Progress Note Date: 03/07/18 57-year-old resting in bed. Did note the patient temp last night of 101. Current temp 99. Patient states he feels slightly bloated. White count down to 7. Patient states that he did tolerate a clear liquid diet no stool is not belching not passing gas Surgical dressing site dry with a MAGDIEL drain in left lower quadrant serous drainage surgical tenderness appropriate few hypoactive bowel tones slightly bloated Status post 05 of March laparoscopic appendectomy for acute appendicitis with perforation and peritonitis Objective - Vital Signs Vital signs: Vital Signs Temp 98.5 F 03/07/18 06:45 Pulse 73 03/07/18 06:45 Resp 16 03/07/18 06:45 BP 153/89 03/07/18 06:45 Pulse Ox 98 03/07/18 06:45 Intake & Output 03/06/18 03/07/18 03/07/18 18:59 06:59 18:59 Intake Total 600 1400 Output Total 40 10 Balance 560 1390 Intake: Intake, IV Titration 1400 Amount Ampicillin-Sulbactam 3 gm 200 In Sodium Chloride 0.9% 100 ml @ 200 mls/hr IVPB Q6HR PRECIOUS Rx#:[id number] Sodium Chloride 0.9% 1, 1200 000 ml @ 75 mls/hr IV . [id number] [facility] Rx#:[id number] Oral 600 Output: Drainage 40 10 Abdomen 40 10 Other: # Voids 1 2 - Exam Physical exam Abdomen surgical dressing site dry MAGDIEL drain left lower quadrant serous drainage noted surgical tenderness appropriate slightly distended patient states he feels slightly bloated is not passing gas no bowel movement urinating no difficulty tolerating clear liquid with no nausea no vomiting - Labs CBC & Chem 7: 03/07/18 06:28 03/07/18 06:28 Labs: Abnormal Lab Results - Last 24 Hours (Table) 03/07/18 03/07/18 Range/Units 06:28 06:28 RBC 3.99 L (4.30-5.90) m/uL Hgb 11.8 L (13.0-17.5) gm/dL Hct 36.7 L (39.0-53.0) % Lymphocytes # 0.6 L (1.0-4.8) k/uL Sodium 135 L (137-145) mmol/L Glucose 100 H (74-99) mg/dL Calcium 8.0 L (8.4-10.2) mg/dL Total Bilirubin 2.0 H (0.2-1.3) mg/dL Total Protein 5.2 L (6.3-8.2) g/dL Albumin 2.8 L (3.5-5.0) g/dL Assessment and Plan Assessment: Impression Present on admission right upper quadrant abdominal pain with nausea vomiting suspect due to acute appendicitis Computed tomography scan abdomen and pelvis with contrast report indicate acute appendicitis with marked distention of the appendix no bowel obstruction History of a hiatal hernia History of esophageal reflux Present on admission febrile leukocytosis suspect due to acute appendicitis Status post March 05 laparoscopic appendectomy for acute appendicitis with appendiceal perforation and peritonitis Plan Further surgical recommendations pending Clear liquid diet Continue postop surgical care Pain control Increase activity IV fluid as ordered IV Unasyn as ordered per infectious disease DVT and GI prophylaxis pain control The above impression and plan of care have been discussed and directed by signing physician. Glenny Squires nurse practitioner acting as scribe for signing physician.
[2018-03-07] MEDS: ENOXAPARIN 40 MG/0.4 ML SYRINGE SQ SCH (10:43)
[2018-03-07] MEDS: PANTOPRAZOLE 40 MG/10 ML VIAL IVP SCH (10:43)
--- NOTE | 2018-03-07 11:21 | XR ---
EXAMINATION TYPE: XR chest 2V DATE OF EXAM: 03/07/2018 COMPARISON: Chest x-ray August 12, 2012 HISTORY: Recent abdominal surgery with fever TECHNIQUE: Frontal and lateral views of the chest are obtained. FINDINGS: There is diminished inspiration on current study with new left basilar opacity seen on 2 v iews. Suspect tiny left pleural effusion on lateral view. Right lung is clear. The cardiac silhouett e size is more prominent but within normal limits. The osseous structures are intact. IMPRESSION: Diminished inspiration with developing left lower lobe infiltrate and/or atelectasis see n.
[2018-03-07] MEDS: ONDANSETRON 4 MG/2 ML VIAL IVP PRN (14:54)
--- NOTE | 2018-03-07 14:54 | PN ---
PROGRESS NOTE DATE OF SERVICE: 03/07/2018 This 57-year-old gentleman who was admitted after laparoscopic appendectomy improving significantly. No chest pain. No palpitations. No fever. PHYSICAL EXAMINATION: On exam, alert and oriented x3. Pulse is 73, blood pressure 153/89, respirations 16, temperature 98.4, pulse ox 98% on room air. HEENT: Conjunctivae normal. Oral mucosa moist. Neck is no jugular venous distention. No carotid bruit. No lymph node enlargement. CARDIOVASCULAR: S1 and S2, muffled. RESPIRATORY: Breath sounds diminished at the bases. No rhonchi. No crackles. ABDOMEN: Soft, status post surgery. LEGS: No edema, no swelling. NERVOUS SYSTEM: No focal deficits. LABS: WBC 7.4, hemoglobin 11.8. Bilirubin is ntd. Chest x-ray done today showed possible left lower lobe atelectasis. ASSESSMENT: 1. Acute appendicitis, status post laparoscopic appendectomy. 2. Increased WBC. 3. Possible left lower lobe atelectasis. 4. Increased random blood sugar. 5. Hyponatremia, mild. 6. History of gastroesophageal reflux disease. 7. Increased bilirubin, possibly unconjugated hyperbilirubinemia. RECOMMENDATIONS AND DISCUSSION: In this 57-year-old gentleman who presented with multiple medical issues at this time I recommend to continue current medications, continues symptomatic treatment. Otherwise the patient is started on IV Unasyn. I would recommend add bronchodilators incentive spirometry. Continue the rest of medications. Further recommendations to follow. MMODL / IJN: [id number] / MTDD
--- NOTE | 2018-03-07 16:44 | CDI ---
Last Revision, May 2017 Documentation Clarification Form Date: 03/07/2018 4:30:13 PM From: Shayla Murcia RN, CCDS Admit Date: 03/06/2018 3:29:00 PM Patient Name: Lewis Portillo Visit Number: [id number] Discharge Date: ATTENTION: The Clinical Documentation Specialists (CDI) and [facility] Coding Staff appreciate your assistance in clarifying documentation. Please respond to the clarification below the line at the bottom and electronically sign. The CDI & [facility] Coding staff will review the response and follow-up if needed. Please note: Queries are made part of the Legal Health Record. If you have any questions, please contact the author of this message via ITS. Zak Mcgee MD 03/05/18 ID consultation has: Patient admitted to hospital with sepsis and patient did have fever of 100.9, did have elevated white count of 17, 000, tachycardia. History/Risk Factors: Clinical Indicators: Present with complaints of abdominal pain x2 days with nausea and no vomiting. he was found to have acute appendicitis with perforation and peritonitis. Lactic acid: 1.3 Vitals signs on admission: 131/84 100 18 99.6, 124/89 80 18 100.9 Other Clinical Indicators: CT of abdomen/pelvis was suggestive of acute appendicitis. Patient was taken to OR and noted to have ruptured appendicitis with secondary peritonitis Treatment: ID Consult: See above notes. Antibiotics: Unasyn IV Monitor Labs IV Fluids IV Bolus: In your professional opinion, please clarify if these findings signify one of the following conditions, whether the condition is POA, and cause, if known: Condition Sepsis ruled in Sepsis ruled out Other, please specify Unable to determine Present on Admission: Yes No SIRS Criteria..2 or more of the following may indicate SIRS: Temperature < 96.8F (36C) or > 101.0F (38.3C) Heart Rate > 90 bpm Respiratory Rate > 20 breaths/min or PaCO2 < 32 mmHg White Blood Cell Count > 12,000 or < 4,000 cells/mm3 or > 10% bands Lactate >2.0 mmol/L (>4.0 is equivalent to septic shock) Please continue to document in your progress notes and discharge summary in order to capture severity of illness and risk of mortality. Include clinical findings that support your diagnosis. MTDD
[2018-03-07] MEDS: SODIUM CHLORIDE 0.9% 1,000 ML IV SCH (19:09)
[2018-03-07] MEDS: ALBUTEROL NEBULIZED 2.5 MG/3 ML INHALATION SCH (20:50)
--- NOTE | 2018-03-07 22:48 | PN ---
PROGRESS NOTE DATE OF SERVICE: 03/07/2018 REASON FOR FOLLOWUP: Secondary peritonitis from a perforated appendicitis. INTERVAL HISTORY: The patient is afebrile. He did have a fever last night. He has been breathing comfortably. He did mention that he is using incentive spirometer as ordered. No chest pain, though no worsening abdominal pain. Slight nausea, no vomiting, distended, passing some gas. PHYSICAL EXAMINATION: Blood pressure 138/75, pulse 84, temperature 98. He is 95% on room air. General description is a middle-aged male lying in bed in no distress. RESPIRATORY SYSTEM: Unlabored breathing. Clear to auscultation anteriorly. HEART: S1, S2. Regular rate and rhythm. ABDOMEN: Soft. No tenderness. No guarding or rigidity. EXTREMITIES: No edema of the feet. LABS: Hemoglobin 11.8, white count 7.4. BUN of 9, creatinine 0.82. DIAGNOSTIC IMPRESSION AND PLAN: Patient with secondary peritonitis from perforated appendicitis, status post laparoscopic appendectomy. The patient did have a fever last night and did have a chest x-ray showing some atelectasis. Blood culture has been ordered, is currently pending. White count normal this morning. The patient has been doing incentive spirometry. Repeat CBC tomorrow. If any further fever, will have to adjust antibiotic further. Continue supportive care. MMODL / IJN: [id number] /
[2018-03-08] MEDS: AMPICILLIN-SULBACTAM 3 GM in SODIUM CHLORIDE 0.9% 100 ML IVPB SCH ×5 (00:12→23:58)
[2018-03-08] MEDS: SODIUM CHLORIDE 0.9% 1,000 ML IV SCH ×2 (04:56→07:30)
[2018-03-08 07:13] LABS: Basophils % (A) 0 %; Eosinophils # (A) 0.3 k/uL (0-0.7); Eosinophils % (A) 3 %; HCT 40.7 % (39.0-53.0); HGB 13.1 gm/dL (13.0-17.5); Lymphocytes # (A) 0.8 k/uL (1.0-4.8); Lymphocytes % (A) 9 %; MCHC 32.1 g/dL (31.0-37.0); MCV 90.5 fL (80.0-100.0); Mean Platelet Volume 6.9; Monocytes # (A) 0.7 k/uL (0-1.0); Monocytes % (A) 7 %; Neutrophils # (A) 6.9 k/uL (1.3-7.7); Neutrophils % (A) 78 %; Platelet Count 271 k/uL (150-450); RDW 12.2 % (11.5-15.5); WBC 8.9 k/uL (3.8-10.6)
[2018-03-08 07:37] LABS: ALT 27 U/L (21-72); AST 25 U/L (17-59); Alkaline Phosphatase 93 U/L (38-126); Anion Gap 10 mmol/L; Blood Urea Nitrogen 7 mg/dL (9-20); Calcium 8.4 mg/dL (8.4-10.2); Carbon Dioxide 23 mmol/L (22-30); Chloride 106 mmol/L (98-107); Glucose 111 mg/dL (74-99); Potassium 3.6 mmol/L (3.5-5.1); Sodium 139 mmol/L (137-145); Total Protein 5.7 g/dL (6.3-8.2)
[2018-03-08] MEDS: ALBUTEROL NEBULIZED 2.5 MG/3 ML INHALATION SCH ×3 (08:13→19:12)
[2018-03-08] MEDS: ENOXAPARIN 40 MG/0.4 ML SYRINGE SQ SCH (09:19)
[2018-03-08] MEDS: PANTOPRAZOLE 40 MG/10 ML VIAL IVP SCH (09:19)
--- NOTE | 2018-03-08 15:53 | P.PN ---
Subjective Progress Note Date: 03/08/18 HISTORY OF PRESENT ILLNESS: The patient is a 57-year-old gentleman who presented with acute appendicitis with perforation. He had expected severe ileus as a result from his perforated appendicitis. Today he reports feeling much better. He is passing much flatus. He does report loose stools. He now has an appetite. PHYSICAL EXAM: GENERAL: Well-developed in no distress. HEENT: No scleral icterus. Extraocular movements grossly intact. Hears conversational speech. No nasal drainage. NECK: Supple without lymphadenopathy. CHEST: Nonlabored respirations with equal bilateral excursions. CARDIOVASCULAR: Regular rate and regular rhythm. Distal 2+ pulses. ABDOMEN: No peritonitis. Decreased distention. MUSCULOSKELETAL: No clubbing, cyanosis, or edema. Gross strength 5/5 distal lower extremities. NEURO: No focal or lateralizing signs. Cranial nerves 2 through 12 grossly within normal limits. PSYCH: Appropriate affect. Alert and oriented to person, place and time. SKIN: Good skin turgor. Well perfused. ASSESSMENT: 1. Perforated appendicitis with sequelae of ileus, expected PLAN: 1. Will advance diet as ileus is improving 2. Continue antibiotic Objective - Vital Signs Vital signs: Vital Signs Temp 98.8 F 03/08/18 07:34 Pulse 74 03/08/18 07:34 Resp 16 03/08/18 07:34 BP 142/87 03/08/18 07:34 Pulse Ox 94 L 03/08/18 07:34 Intake & Output 03/07/18 03/08/18 03/08/18 18:59 06:59 18:59 Intake Total 500 1640 Output Total 90 30 30 Balance 410 1610 -30 Intake: Intake, IV Titration 1400 Amount Ampicillin-Sulbactam 3 gm 200 In Sodium Chloride 0.9% 100 ml @ 200 mls/hr IVPB Q6HR [facility] Rx#:[id number] Sodium Chloride 0.9% 1, 1200 000 ml @ 75 mls/hr IV . [id number] [facility] Rx#:[id number] Oral 500 240 Output: Drainage 90 30 30 Abdomen 90 30 30 Other: # Voids 1 3 # Bowel Movements 2 - Labs CBC & Chem 7: 03/08/18 06:55 03/08/18 06:55 Labs: Abnormal Lab Results - Last 24 Hours (Table) 03/08/18 03/08/18 Range/Units 06:55 06:55 Lymphocytes # 0.8 L (1.0-4.8) k/uL BUN 7 L (9-20) mg/dL Glucose 111 H (74-99) mg/dL Total Bilirubin 2.0 H (0.2-1.3) mg/dL Total Protein 5.7 L (6.3-8.2) g/dL Albumin 3.0 L (3.5-5.0) g/dL Microbiology - Last 24 Hours (Table) 03/06/18 23:20 Blood Culture - Preliminary Blood No Growth after 24 hours 03/06/18 23:24 Blood Culture - Preliminary Blood No Growth after 24 hours Assessment and Plan (1) Acute perforated appendicitis Current Visit: Yes Status: Acute Code(s): K35.2 - ACUTE APPENDICITIS WITH GENERALIZED PERITONITIS SNOMED Code(s): 69593939
--- NOTE | 2018-03-08 16:01 | PN ---
PROGRESS NOTE DATE OF SERVICE: 03/08/2018 This 57-year-old gentleman who was admitted after acute appendicitis is being closely monitored. No chest pain. No palpitations. No fever. Patient is on broad spectrum IV antibiotics. On exam, alert and oriented x3. Pulse is 74, blood pressure 142/87, respiration 16, temperature 98.8, pulse ox 94% on room air. HEENT: Conjunctivae normal. Oral mucosa moist. NECK: No jugular venous distention. No carotid bruit. No lymph node enlargement. CARDIOVASCULAR SYSTEM: S1, S2 muffled. RESPIRATORY SYSTEM: Breath sounds diminished at the bases. A few rhonchi. No crackles. ABDOMEN: Soft. Status post surgery. LEGS: No edema. No swelling. NERVOUS SYSTEM: No focal deficit. Labs show total bilirubin is 2, WBC 8.9, hemoglobin 13.1. ASSESSMENT: 1. Acute appendicitis, status post laparoscopic appendectomy. 2. Increased white count. 3. Possible left lower lobe atelectasis. 4. Increased random blood sugar. 5. Hyponatremia, mild. 6. History of gastroesophageal reflux disease. 7. 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 RECOMMENDATIONS AND DISCUSSION: I recommend to continue current medication, continue symptomatic treatment. Continue incentive spirometry. Continue the rest of the medications. Continue with broad- spectrum IV antibiotics. Closely monitor. Follow with Surgery. Further recommendations to follow. MMODL / IJN: [id number] /
--- NOTE | 2018-03-08 22:31 | PN ---
PROGRESS NOTE DATE OF SERVICE: 03/08/2018. REASON FOR FOLLOWUP: Secondary peritonitis from perforated appendicitis. INTERVAL HISTORY: The patient is currently afebrile. He has been feeling better, breathing comfortably. Abdominal pain has improved. He did have 3 bowel movements yesterday. No nausea, vomiting. EXAMINATION: Blood pressure 138/79 with a pulse of 73, temperature 99.4. He is 95% on room air. General description is a middle-aged male up in the bed in no distress. RESPIRATORY SYSTEM: Unlabored breathing. Clear to auscultation anteriorly. HEART: S1, S2. Regular rate and rhythm. ABDOMEN: Soft. No guarding or rigidity. LABS: Hemoglobin 13.1, white count of 8.9 with a BUN of 7, creatinine 0.78. Blood culture has been negative. DIAGNOSTIC IMPRESSION AND PLAN: Patient with secondary peritonitis from perforated appendicitis, status post laparoscopic appendectomy. The patient's overall fever pattern has improved. White count is normal. Blood culture negative. Will keep the patient on Unasyn at this point, hopefully finish therapy with oral antibiotic on discharge. Continue supportive care. MMODL / IJN: [id number] /
[2018-03-08] MEDS: ONDANSETRON 4 MG/2 ML VIAL IVP PRN (23:07)
[2018-03-09] MEDS: AMPICILLIN-SULBACTAM 3 GM in SODIUM CHLORIDE 0.9% 100 ML IVPB SCH ×4 (05:19→23:30)
[2018-03-09] MEDS: ALBUTEROL NEBULIZED 2.5 MG/3 ML INHALATION SCH ×3 (07:19→19:15)
[2018-03-09 08:37] VITALS: RESP 16
[2018-03-09] MEDS: ENOXAPARIN 40 MG/0.4 ML SYRINGE SQ SCH (10:29)
[2018-03-09] MEDS: PANTOPRAZOLE 40 MG/10 ML VIAL IVP SCH (10:29)
[2018-03-09] MEDS: SODIUM CHLORIDE 0.9% 1,000 ML IV SCH ×2 (12:13→23:30)
--- NOTE | 2018-03-09 12:33 | P.PN ---
Subjective Progress Note Date: 03/09/18 HISTORY OF PRESENT ILLNESS: The patient is a 57-year-old gentleman who presented with acute appendicitis with perforation. He tolerated diet yesterday. He reports at 4 AM this morning, he had acute sharp pain along the right upper abdomen. No reports of nausea and vomiting. He reports generalized malaise. He does feel better than yesterday. PHYSICAL EXAM: GENERAL: Well-developed in no distress. HEENT: No scleral icterus. Extraocular movements grossly intact. Hears conversational speech. No nasal drainage. NECK: Supple without lymphadenopathy. CHEST: Nonlabored respirations with equal bilateral excursions. CARDIOVASCULAR: Regular rate and regular rhythm. Distal 2+ pulses. ABDOMEN: No peritonitis. Minimal tenderness right lower/upper quadrant. MUSCULOSKELETAL: No clubbing, cyanosis, or edema. NEURO: No focal or lateralizing signs. Cranial nerves 2 through 12 grossly within normal limits. PSYCH: Appropriate affect. Alert and oriented to person, place and time. SKIN: Good skin turgor. Well perfused. ASSESSMENT: 1. Perforated appendicitis with sequelae of ileus, expected PLAN: 1. Abdominal x-ray and chest x-ray obtained for change in clinical status for abdominal pain. 2. Continue antibiotics 3. Recommend sent to spirometer Objective - Vital Signs Vital signs: Vital Signs Temp 99.1 F 03/09/18 08:36 Pulse 79 03/09/18 08:36 Resp 16 03/09/18 08:36 BP 169/75 03/09/18 08:36 Pulse Ox 96 03/09/18 08:36 Intake & Output 03/08/18 03/09/18 03/09/18 18:59 06:59 18:59 Intake Total 700 1703 Output Total 30 200 Balance 670 1503 Intake: IV 700 800 Ampicillin-Sulbactam 3 gm 100 In Sodium Chloride 0.9% 100 ml @ 200 mls/hr IVPB Q6HR PRECIOUS Rx#:[id number] Sodium Chloride 0.9% 1, 600 800 000 ml @ 75 mls/hr IV . [id number] PRECIOUS Rx#:[id number] Intake, IV Titration 600 Amount Sodium Chloride 0.9% 1, 600 000 ml @ 75 mls/hr IV . [id number] PRECIOUS Rx#:[id number] Oral 0 Other 303 Output: Drainage 30 200 Abdomen 30 200 Other: # Voids 3 3 - Labs CBC & Chem 7: 03/08/18 06:55 03/08/18 06:55 Labs: Microbiology - Last 24 Hours (Table) 03/06/18 23:20 Blood Culture - Preliminary Blood No Growth after 48 hours 03/06/18 23:24 Blood Culture - Preliminary Blood No Growth after 48 hours Assessment and Plan (1) Acute perforated appendicitis Current Visit: Yes Status: Acute Code(s): K35.2 - ACUTE APPENDICITIS WITH GENERALIZED PERITONITIS SNOMED Code(s): 48563203
--- NOTE | 2018-03-09 14:07 | PN ---
PROGRESS NOTE DATE OF SERVICE: 03/09/2018. INTERVAL HISTORY: This 57-year-old gentleman admitted with acute appendicitis had laparoscopic appendectomy. No chest pain. No palpitations. No fever. PHYSICAL EXAM: Alert and oriented times three. Pulse 79, blood pressure 169/74, respiration 16, temperature 99.1, pulse ox 98% on room air. HEENT: Conjunctivae normal. Oral mucosa moist. Neck is no jugular venous distention. No carotid bruit. No lymph node enlargement. CARDIOVASCULAR: S1, S2. RESPIRATIONS: Breath sounds diminished in the bases. No rhonchi. No crackles. ABDOMEN: Soft, nontender. CENTRAL NERVOUS SYSTEM: No focal deficits. LABS: Bilirubin is 2. Other labs are noted. ASSESSMENT: 1. Acute appendicitis status post laparoscopic appendectomy. 2. Peritonitis from appendiceal perforation. 3. Increased WBC. 4. Possible left lower lobe atelectasis. 5. Increased random blood sugar. 6. Hyponatremia mild. 7. History of gastroesophageal reflux disease. 8. 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 RECOMMENDATIONS AND DISCUSSION: Recommend to continue current medications, management and symptomatic treatment, incentive spirometry. Otherwise, we will monitor the patient closely. Continue with antibiotics. DVT prophylaxis. Closely follow with surgery and Infectious Disease. Further recommendations to follow. MMODL / IJN: [id number] / NEFTALI
--- NOTE | 2018-03-09 14:33 | XR ---
EXAMINATION TYPE: XR abdomen acute w cxr DATE OF EXAM: 03/09/2018 COMPARISON: NONE HISTORY: Abdominal pain TECHNIQUE: Chest x-ray with supine and upright abdomen FINDINGS: There is slight blunting of left costophrenic angle. Heart and mediastinum appear normal. There is no heart failure. Lungs are clear of consolidation. There is a catheter over the abdomen with the tip in the right upper quadrant. There are multiple dil ated fluid-filled loops of small bowel in the midabdomen. There is no sign of pneumoperitoneum. There are no pathologic calcifications over the kidneys. I see no evidence of fecal material or air in the large bowel. IMPRESSION: Small left pleural effusion. Dilated small bowel consistent with a mechanical small bowel obstruction.
--- NOTE | 2018-03-09 23:26 | PN ---
PROGRESS NOTE DATE OF SERVICE: 03/09/2018. REASON FOR FOLLOWUP: Secondary peritonitis from perforated appendicitis. INTERVAL HISTORY: The patient is afebrile. Overall, the patient is feeling better. Breathing comfortably. The patient denies having any chest pain, shortness of breath or cough. Abdominal discomfort has improved. No nausea, no vomiting. No diarrhea. EXAMINATION: Blood pressure 134/83 with a pulse of 61, temperature of 99.3. He is 97% on room air. General description is a middle aged male up in the chair in no distress. Respiratory system: Unlabored breathing clear to auscultation anteriorly. Heart S1, S2. Regular rate and rhythm. Abdomen soft, no tenderness. LABS: Hemoglobin 13.1, white count 8.9 with a BUN of 7, creatinine 0.78. DIAGNOSTIC IMPRESSION AND PLAN: Patient with secondary peritonitis from ruptured appendicitis status post laparoscopic appendectomy. The patient is currently afebrile. White count normal. Blood culture has been negative. Currently on Unasyn that will be transitioned to Augmentin 875 b.i.d. for another 7-10 days. Prescription has been sent to the pharmacy with close outpatient followup. MMODL / IJN: [id number] /
[2018-03-10] MEDS: AMPICILLIN-SULBACTAM 3 GM in SODIUM CHLORIDE 0.9% 100 ML IVPB SCH ×2 (05:36→11:11)
[2018-03-10] MEDS: ALBUTEROL NEBULIZED 2.5 MG/3 ML INHALATION SCH ×2 (08:30→12:12)
[2018-03-10] MEDS: PANTOPRAZOLE 40 MG/10 ML VIAL IVP SCH (11:10)
[2018-03-10] MEDS: ENOXAPARIN 40 MG/0.4 ML SYRINGE SQ SCH (11:10)
[2018-03-10 14:43] VITALS: BP 148/77; PULSE 68; TEMP 98.5
--- NOTE | 2018-03-10 14:50 | PN ---
PROGRESS NOTE DATE OF SERVICE: 03/10/2018 REASON FOR FOLLOWUP: Secondary peritonitis from perforated appendicitis. INTERVAL HISTORY: The patient is currently afebrile. He is breathing comfortably. Denies having any chest pain or shortness of breath or cough. Abdominal pain has improved. No nausea, vomiting. No diarrhea. PHYSICAL EXAMINATION: Blood pressure 131/71 with a pulse of 74, temperature 98.9. He is 95% weight is the pain is a middle-aged male up in the bed in no distress respiratory system unlabored breathing clear to auscultation anteriorly heart S1, S2. Regular rate and rhythm no tenderness. LABS: No new labs have been obtained today. DIAGNOSTIC IMPRESSION AND PLAN: Patient with secondary peritonitis from a perforated appendicitis, status post laparoscopic appendectomy Plan is to finish therapy with oral Augmentin 875 b.i.d. for about 10 days. Prescription was sent to pharmacy with close outpatient followup. MMODL / IJN: [id number] /
--- NOTE | 2018-03-10 15:19 | P.DS ---
Providers Date of admission: 03/06/18 15:29 Expected date of discharge: 03/10/18 Attending physician: Zak Julien Consults: 03/05/18 11:36 Consult Physician Routine Consulting Provider: Vitor Martinez Consult Reason/Comments: Medical management Do you want consulting provider notified?: Yes 03/05/18 11:39 Consult Physician Routine Consulting Provider: Esteban Davidson Consult Reason/Comments: Ruptured appendicitis Do you want consulting provider notified?: Yes Primary care physician: Georgette Salguero [facility] Course: This a 57-year-old male who underwent laparoscopic appendectomy for acute appendicitis with rupture. Please see chart for details. Procedures: Laparoscopic appendectomy Patient Condition at Discharge: Good Plan - Discharge Summary Discharge Rx Participant: Yes New Discharge Prescriptions: New Docusate [Colace] 100 mg PO BID #20 capsule HYDROcodone/APAP 7.5-325MG [Rosebud 7.5-325] 1 tab PO Q4H PRN 3 Days #18 tab PRN Reason: Pain Amoxic-Pot Clav 875-125Mg [Augmentin 875-125] 1 tab PO Q12HR #20 tablet No Action Pantoprazole [Protonix] 40 mg PO DAILY Discharge Medication List Pantoprazole [Protonix] 40 mg PO DAILY 03/04/18 [History] Docusate [Colace] 100 mg PO BID #20 capsule 03/07/18 [Rx] HYDROcodone/APAP 7.5-325MG [Rosebud 7.5-325] 1 tab PO Q4H PRN 3 Days #18 tab 03/07 [Rx] Amoxic-Pot Clav 875-125Mg [Augmentin 875-125] 1 tab PO Q12HR #20 tablet [Rx] Follow up Appointment(s)/Referral(s): Georgette Salguero III, MD [Primary Care Provider] - 03/13/18 9:30 am Esteban Davidson MD [STAFF PHYSICIAN] - 03/17/18 2:45 pm (Appointment set at [place] [id number] ) Zak Julien MD [STAFF PHYSICIAN] - 03/18/18 3:40 pm (Please bring License and Insurance card for appointment) Activity/Diet/Wound Care/Special Instructions: Call if patient is getting discharged for antibiotic reccommedations
--- NOTE | 2018-03-10 17:27 | PN ---
PROGRESS NOTE DATE OF SERVICE: 03/10/2018. INTERVAL HISTORY: This 57-year-old gentleman who was admitted with acute appendicitis had laparoscopic appendectomy. The patient also had peritonitis from superficial perforation. Patient is improved significantly. No chest pain. No palpitations. No fever. Surgery is planning discharge. PHYSICAL EXAM: Alert and oriented x3. Pulse 68, blood pressure 140/77, respiration 16, temperature 98.4, pulse ox 97% on room air. HEENT: Conjunctivae normal. Oral mucosa moist. NECK: No jugular venous distention. No carotid bruit. No lymph node enlargement. CARDIOVASCULAR: S1, S2. RESPIRATORY: Breath sounds diminished in the bases. A few scattered rhonchi. No crackles. ABDOMEN: Soft, status post surgery. LEGS: No edema. NERVOUS SYSTEM: No focal deficits. LABS: CBC within normal limits. Otherwise the labs are noted. ASSESSMENT: 1. Acute appendicitis status post laparoscopic appendectomy. 2. Peritonitis from superficial perforation, present on admission. 3. Increased WBC. 4. Possible left lower lobe atelectasis, improved. 5. Increased random blood sugar. 6. Hyponatremia mild. 7. History of gastroesophageal reflux disease. 8. 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 RECOMMENDATIONS AND DISCUSSION: I recommend to continue current management and symptomatic treatment. Resume the home medications. The rest of the recommendations per Surgery. Follow up with Dr. Salguero in the outpatient setting. SETH / ELAINA: [id number] /
== END 2018-03-10 16:07 | disposition home or self-care (01) | DRG 853 ==
LOC: EC 18:00 → 3SUR 20:51 → OBSVTOIN 03-06 15:29 → 3SUR 03-07 18:19
PROVIDERS: ADMIT Surgery; ATTEND Surgery
PROC: 0DTJ4ZZ Resection of Appendix, Percutaneous Endoscopic Approach (ICD-10-PCS; principal; 2018-03-05 10:25)
DX: A41.9 Sepsis, unspecified organism (principal); K35.2 Acute appendicitis with generalized peritonitis; E87.1 Hypo-osmolality and hyponatremia; J98.11 Atelectasis; K56.7 Ileus, unspecified; K21.9 Gastro-esophageal reflux disease without esophagitis; K44.9 Diaphragmatic hernia without obstruction or gangrene; R73.9 Hyperglycemia, unspecified; Z79.899 Other long term (current) drug therapy; Z82.49 Family history of ischemic heart disease and other diseases of the circulatory system; Z83.3 Family history of diabetes mellitus
CPT/HCPCS: 36415; 71046; 74022; 74177; 80053; 81003; 82248; 83605; 83690; 85025; 85730; 87040; 88304; 96365; 96375; 99285